=== PATIENT | male | born 1980 | race Caucasian/White ===

== ENCOUNTER 2024-06-25 09:31 | Emergency (ER) | payer SELFPAY ==
[2024-06-25] MEDS ORDERED: Sodium Chloride 0.9% 10 ML Syringe FLUSH PRN (09:36)
[2024-06-25] MEDS: Sodium Chloride 0.9% 1,000 ML IV ONE (09:40)
[2024-06-25 09:45] LABS: BASOPHILS PERCENT AUTO 0.3 % (0.3-3.8); EOSINOPHILS ABSOLUTE AUTO 0.1 x10-3/uL (0.0-0.6); EOSINOPHILS PERCENT AUTO 0.6 % (0.1-6.8); LYMPHOCYTES ABSOLUTE AUTO 1.1 x10-3/uL (0.5-4.5); LYMPHOCYTES PERCENT AUTO 10.1 % (15.8-45.3); MEAN CORPUSCULAR HEMOGLOBIN 15.3 pg (27.0-33.3); MEAN CORPUSCULAR HGB CONC 26.5 g/dL (28.7-35.3); MEAN CORPUSCULAR VOLUME 57.4 fL (80.8-98.7); MEAN PLATELET VOLUME 7.6 fL (6.7-11.0); MONOCYTES ABSOLUTE AUTO 0.6 x10-3/uL (0.0-1.2); MONOCYTES PERCENT AUTO 5.2 % (5.5-15.2); NEUTROPHILS ABSOLUTE AUTO 8.9 x10-3/uL (1.7-6.9); NEUTROPHILS PERCENT AUTO 83.9 % (40.3-71.8); PLATELET COUNT,PLT 579 x10(3)uL (117-477); RED BLOOD CELL COUNT 1.86 x10(6)uL (3.90-5.90); RED CELL DISTRIBUTION WIDTH 25.3 % (12.4-15.0); WHITE BLOOD CELL COUNT,WBC 10.6 x10-3/uL (3.2-10.1)
[2024-06-25 09:48] LABS: HEMATOCRIT 10.7 % (38.3-50.1); HEMOGLOBIN 2.8 g/dL (12.9-17.7)
[2024-06-25 09:55] LABS: BLOOD UREA NITROGEN,BUN 18 mg/dL (7-18); CALCIUM 8.6 mg/dL (8.6-10.2); CARBON DIOXIDE,CO2 21 mmol/L (21-32); CHLORIDE,CL 102 mmol/L (100-110); ESTIMATED GFR 95 mL/min (>60); GLUCOSE RANDOM 133 mg/dL (80-116); POTASSIUM,K 4.3 mmol/L (3.5-5.3); SODIUM,NA 139 mmol/L (135-145)
[2024-06-25 10:01] LABS: A/G RATIO 1.4; ALANINE AMINOTRANSFERASE,ALT 14 U/L (12-36); ALKALINE PHOSPHATASE 46 IU/L (56-112); ASPARTATE AMNIOTRANSFERASE,AST 10 IU/L (5-25); BILIRUBIN TOTAL 0.7 mg/dL (0.1-1.3); PROTEIN TOTAL,TP 6.8 g/dL (6.0-8.0)
[2024-06-25] MEDS: fentaNYL 100 MCG/2 ML SDV IVPUSH ONE (10:32)
== END 2024-06-25 11:06 ==
LOC: FB.ED 09:31
DX: K62.5 Hemorrhage of anus and rectum (principal); Z88.0 Allergy status to penicillin; Z91.018 Allergy to other foods
CPT/HCPCS: 36415; 36430; 80053; 85025; 86850; 86900; 86901; 86920; 86922; 96361; 96374; 99285; J3010; J7030; P9016